=== PATIENT | female | born 1980 | race Caucasian/White ===

== ENCOUNTER 2019-10-25 06:33 | Day surgery (SDC) | payer BC ==
[2019-10-25] MEDS ORDERED: Ringers Lactate 1,000 ML IV ONE (06:55)
[2019-10-25] MEDS ORDERED: CEFAZOLIN/SWI 2gm 2 GM/20 ML SYR ONE (06:55)
[2019-10-25 07:23] VITALS: O2SAT 100
[2019-10-25] MEDS ORDERED: NA CHLORIDE 0.9% 1,000 ML ONE (07:42)
[2019-10-25] MEDS ORDERED: LIDOCAINE 1% W/EPI 1:100,000 MDV 20 ML VIAL ONE (07:42)
[2019-10-25] MEDS ORDERED: propofoL 200 MG/20 ML VIAL IV ONE (07:55)
[2019-10-25] MEDS ORDERED: FENTANYL CITR 100 MCG/2 ML ONE (07:55)
[2019-10-25] MEDS ORDERED: LIDOCAINE 2% MPF 5 ML VIAL ONE (07:56)
[2019-10-25] MEDS ORDERED: MIDAZOLAM HCL 2 MG/2 ML INJ ONE (07:57)
[2019-10-25] MEDS ORDERED: ONDANSETRON 4 MG/2 ML VIAL ONE ×2 (07:57→09:14)
[2019-10-25] MEDS ORDERED: KETOROLAC 30 MG/ML INJ ONE (08:50)
[2019-10-25] MEDS ORDERED: EPHEDRINE SULF 50 MG/ML VIAL ONE (08:51)
[2019-10-25] MEDS: HYDROMORPHONE HCL 1 MG/ML INJ ONE ×2 (09:17→09:27)
[2019-10-25] MEDS ORDERED: HYDROCODONE/APAP 5/325 MG TAB ONE (10:12)
[2019-10-25 11:06] VITALS: BP 101/53; TEMP 98.3
--- NOTE | 2019-10-25 20:44 | OP ---
Date of Procedure: 10/25/2019 Surgeon: Ira Dozier MD Postoperative Diagnosis: Menorrhagia. Postoperative Diagnosis: Menorrhagia. Procedure Performed: Hysteroscopy, endometrial ablation with NovaSure. Complications: No complications. Drains: No drains. Findings: Endometrial cavity empty and ablation effect excellent. Settings for the NovaSure, length 5 cm, width 4.7 cm, power 127 stacy, and T is 52 seconds. Anesthesia: General with LMA. Estimated Blood Loss: Minimal. Description Of Procedure: The patient is a 39-year-old with heavy menstrual bleeding. She had hyste roscopic evaluation after an ultrasound, which showed no atypia or malignancy. Discussed all the opt ions of treatment with an IUD or ablation. Oral contraceptives Depo declined the patient. After con templating between the 2 options, she wanted to proceed with an ablation, so she was consented. She understands that 90% success and 75% success in the termite treater helper as well . All complications including bleeding, infection, perforation of the uterus and longer-term complications like postablation, tubal ligation syndrome. She is status post tubal ligation. Description Of Procedure: After informed consent was verified, she was brought to the OR. 2 g of An cef were given. She was placed in a supine position. General anesthesia was given, placed in a dors al lithotomy position using James stirrups. Pelvic exam performed. Uterus anteflexed. Speculum stefan ted to expose the cervix after Betadine prep x3 was done. The vulva, vagina, and the perineum, anter ior lip grasped with 2 Allis clamps. SlimLine diagnostic hysteroscope was used to perform the hyster oscopy after entering the uterine cavity unremarkable on distorted cavity. Direct measurement of the uterine fundus 8.5 cm, cervical length 3.5, calculated uterine cavity length of 5 cm was set into th e machine. Once the NovaSure device was primed, it was inserted into the uterus and deployed the fan . The width was 4.7 was entered into the generator. The occluder was used to occlude the cervical o s and cavity integrity test was performed and after it passed, the machine was enabled and the ablati on cycle started, it was uninterrupted for 52 seconds. After it was done, the device was undeployed carefully and removed. After hysteroscopy was performed postablation, there was an excellent ablatio n effect. The cavity was rinsed out with normal saline through the hysteroscope and then all the ins truments were removed. Instrument, needle, and sponge counts were correct. She tolerated the proced ure well without any complications. She was recovered from anesthesia and taken to the PACU in stabl e condition. She will follow up with me in 1 month. She has a postop appointment. A prescription f or [place] has been given to this patient and all instructions. CLAYTON/KOLE Voice ID: [id number] Report ID: [id number]
== END 2019-10-25 10:45 | disposition home or self-care (01) ==
LOC: OR 06:33
PROVIDERS: ATTEND Obstetrics & Gynecology
PROC: 0U5B8ZZ Destruction of Endometrium, Via Natural or Artificial Opening Endoscopic (ICD-10-PCS; principal; 2019-10-25 08:30)
DX: N92.0 Excessive and frequent menstruation with regular cycle (principal); N94.6 Dysmenorrhea, unspecified; Z88.6 Allergy status to analgesic agent; Z80.49 Family history of malignant neoplasm of other genital organs; Z80.0 Family history of malignant neoplasm of digestive organs; Z82.3 Family history of stroke; Z83.3 Family history of diabetes mellitus
CPT/HCPCS: 81025; 58563; J2704; J2250; J3010; J1170; J0690; J7120; J7030; J2405 ×2